=== PATIENT | male | born 1960 | race Hispanic/Latino ===

== ENCOUNTER 2022-06-14 16:49 | Emergency (ER) | payer MEDICARE, MEDICAID ==
[2022-06-14 17:38] LABS: BASO% 0.3 % (0-3); EOS% 1.7 % (0-8); HEMATOCRIT 37.6 % (39.0-50.0); HEMOGLOBIN 12.1 g/dl (14.0-18.0); IMMATURE GRANULOCYTES 1.2 % (0.0-5.0); LYMPH% 23.1 % (15-41); MEAN CELL VOLUME 100.5 fL CALC (80.0-100.0); MEAN CORPUSCULAR HGB 32.4 pG CALC (26.0-32.0); MEAN CORPUSCULAR HGB CONC 32.2 g/dL CAL (32.0-36.0); MONO% 10.2 % (2-13); NEUT# 4.4 thou/uL (1.82-7.42); NEUT% 63.5 % (42-76); RED BLOOD COUNT 3.74 mill/uL (4.70-6.10); RED CELL DISTRI WIDTH 13.2 % (11.5-15.5)
[2022-06-14 18:04] LABS: ALBUMIN 4.1 g/dL (3.2-5.0); ALKALINE PHOSPHATASE 86 u/l (38-126); ANION GAP 12 (6-22 (CALC)); BILIRUBIN, TOTAL 0.4 mg/dL (0.0-1.4); BUN 30 mg/dL (8-23); BUN/CREATININE RATIO 27 (12-20 (CALC)); CARBON DIOXIDE 25 mmol/l (22-30); CHLORIDE 104 mmol/l (95-108); CREATININE 1.1 mg/dL (0.7-1.3); GFR FOR AFR.AMER. > 60 ML/MIN (>=60 (CALC)); GFR OTHER RACES > 60 ML/MIN (>=60 (CALC)); POTASSIUM 4.9 mmol/l (3.5-5.1); SGOT/AST 41 u/l (19-48); SODIUM 136 mmol/l (137-146); TOTAL PROTEIN 7.4 g/dL (6.3-8.2)
[2022-06-14] MEDS ORDERED: ASPIRIN81 MG PO (19:36)
[2022-06-14] MEDS ORDERED: LIPITOR80 M1 PO (19:36)
[2022-06-14] MEDS ORDERED: NORVASC5 M1 PO (19:36)
[2022-06-14] MEDS ORDERED: CITALOPRAM20 MG PO (19:37)
[2022-06-14] MEDS ORDERED: CLOPIDOGREL75 MG PO (19:37)
[2022-06-14] MEDS ORDERED: GABAPENTIN100 MG PO (19:38)
[2022-06-14] MEDS ORDERED: JARDIANCE25 MG (19:38)
[2022-06-14] MEDS ORDERED: LISINOPRIL10 MG PO (19:38)
[2022-06-14] MEDS ORDERED: METOPROL TAR25 MG PO (19:39)
[2022-06-14] MEDS ORDERED: METFORMIN500 M2 PO (19:39)
[2022-06-14 22:50] VITALS: BP 143/65
== END 2022-06-14 23:20 | disposition short-term general hospital (02) ==
LOC: ED 16:49
PROVIDERS: Family Medicine
DX: E11.69 Type 2 diabetes mellitus with other specified complication (principal); M86.8X7 Other osteomyelitis, ankle and foot; L03.115 Cellulitis of right lower limb; E11.51 Type 2 diabetes mellitus with diabetic peripheral angiopathy without gangrene; I10 Essential (primary) hypertension; I25.10 Atherosclerotic heart disease of native coronary artery without angina pectoris; Z79.84 Long term (current) use of oral hypoglycemic drugs